=== PATIENT | female | born 1985 | race Caucasian/White ===

== ENCOUNTER 2020-04-20 05:43 | Day surgery (SDC) | payer BC, OTHER ==
[~2020-04-20] VITALS: Ht 162.6 cm; Wt 100.2 kg
[2020-04-20] MEDS ORDERED: AMLODIPINE BESYL5 MG PO (06:41)
[2020-04-20] MEDS ORDERED: HYDROCHLOROTHIA25 MG PO (06:41)
[2020-04-20] MEDS ORDERED: OMEPRAZOLE40 MG PO (06:42)
[2020-04-20] MEDS ORDERED: METFORMIN HCL1000 MG PO (06:42)
[2020-04-20] MEDS ORDERED: MEDROXYPROGESTE10 MG PO (06:43)
[2020-04-20] MEDS ORDERED: ZOFRAN 4 MG TAB4 MG PO (06:43)
[2020-04-20] MEDS ORDERED: TRAMADOL HCL50 MG PO (06:45)
[2020-04-20] MEDS ORDERED: DIAZEPAM10 MG VG (06:46)
[2020-04-20] MEDS ORDERED: TOPAMAX50 MG PO (06:46)
[2020-04-20] MEDS ORDERED: IBU400 MG PO (06:47)
[2020-04-20] MEDS ORDERED: TYLENOL EXTRA500 MG PO (06:48)
[2020-04-20] MEDS ORDERED: AIRBORNE GUMMI1 EACH PO (06:48)
[2020-04-20] MEDS ORDERED: STOOL SOFTENER250 MG PO (06:49)
[2020-04-20] MEDS ORDERED: ALLERGY PLUS-S1 EACH PO (06:49)
[2020-04-21 06:38] LABS: HEMOGLOBIN 10.9 gm/dl (12.3-15.3)
== END 2020-04-21 11:19 | disposition home or self-care (01) ==
LOC: OR 05:43 → OB 12:36 → OR 04-21 11:19
PROVIDERS: Obstetrics & Gynecology
DX: N92.0 Excessive and frequent menstruation with regular cycle (principal); N94.6 Dysmenorrhea, unspecified; E28.2 Polycystic ovarian syndrome; M62.89 Other specified disorders of muscle; I10 Essential (primary) hypertension; E11.9 Type 2 diabetes mellitus without complications; J45.909 Unspecified asthma, uncomplicated; K21.9 Gastro-esophageal reflux disease without esophagitis; Z23 Encounter for immunization; Z79.84 Long term (current) use of oral hypoglycemic drugs; Z79.899 Other long term (current) drug therapy; Z88.6 Allergy status to analgesic agent; Z88.8 Allergy status to other drugs, medicaments and biological substances; Z87.01 Personal history of pneumonia (recurrent)
CPT/HCPCS: 36415; 84703; 85014; 85018; C1769; J0360; J0690; J1100; J1170; J1885; J2001; J2250; J2405; J2704; J2710; J3010; J7120